=== PATIENT | male | born 1995 | race Caucasian/White ===

== ENCOUNTER 2016-07-12 13:28 | Emergency (ER) | payer BC ==
[~2016-07-12 13:28] MED LIST: AUGMENTIN; TYLENOL325 MG
[2016-07-12] MEDS ORDERED: LEXAPRO10 M2 PO (13:43)
[2016-07-12] MEDS ORDERED: IBUPROFEN800 M1 PO (15:04)
== END 2016-07-12 15:14 ==
LOC: EDMED 13:28
DX: R07.89 Other chest pain (principal); I10 Essential (primary) hypertension; Z79.899 Other long term (current) drug therapy
CPT/HCPCS: J7030